=== PATIENT | male | born 1975 | race Caucasian/White ===

== ENCOUNTER 2017-01-04 14:37 | Observation (INO) | payer MEDICARE ==
[2017-01-04] MEDS ORDERED: Sodium Chloride 0.9% 1000 ML 1,000 ML IV STA (14:51)
--- NOTE | 2017-01-04 14:57 | ERPHSYRPT ---
- History of Present Illness Time Seen by Provider: 01/04/17 14:46 Source: patient, EMS Exam Limitations: no limitations Patient Subjective Stated Complaint: PT REPORTS TAKING YOHIMBO A DIET SUPPLEMENT AT [facility]-DID NOT WORK OUT-DID NOT INCREASE FLUID INTAKE-STATES HE FELT LIKE HIS HEART WAS RACING-LUMA LAW-DENIES N/V/ Triage Nursing Assessment: PT PINK WARM ET [id number] NONLABORED-RADIAL PULSE REGULAR ET STRONG Physician History: This is a 41-year-old white male with history of bipolar disorder who is on lithium. He arrives with complaint of his heart racing symptoms since 10:00 this morning. Patient states he took a 450 mg yohimbe tablet which is a dietary supplement he states he did not work out and he began to feel feel as if his heart was racing. He denies any chest pain shortness of breath he does state that he is nauseous he apparently did not increase his fluids. Past medical history includes depression (bipolar disorder. Past surgical history is negative. Social history patient denies tobacco alcohol or illicit drug use. Patient denies suicidal or homicidal ideation Timing/Duration: today (10:00 this morning) Severity: moderate Modifying Factors: Improves With: medication (took yohimbe 450 mg orally at 10: 00) Associated Symptoms: nausea, other (tacchycardia), No vomiting, No abdominal pain, No shortness of breath, No heartburn, No diaphoresis, No cough, No chills , No chest pain, No fever, No headaches, No loss of appetite, No malaise, No rash, No syncope, No seizure, No weakness Allergies/Adverse Reactions: No Known Drug Allergies Allergy (Unverified 01/04/17 14:39) Home Medications: Fluoxetine HCl [Prozac] 20 mg PO DAILY 01/04/17 [History] [place] Carbonate 300 mg [[place] Carbonate 300 MG] 1,200 mg PO DAILY 09/17 [History] Olanzapine [Zyprexa] 20 mg PO DAILY 01/04/17 [History] Hx Tetanus, Diphtheria Vaccination/Date Given: No Hx Influenza Vaccination/Date Given: No Hx Pneumococcal Vaccination/Date Given: No Immunizations Up to Date: Yes - Review of Systems Constitutional: No Fever, No Chills Eyes: No Symptoms Ears, Nose, & Throat: No Symptoms Respiratory: No Cough, No Dyspnea Cardiac: Palpitations, Other (tacchycardia) Abdominal/Gastrointestinal: Nausea, No Abdominal Pain, No Vomiting, No Diarrhea Genitourinary Symptoms: No Dysuria Musculoskeletal: No Back Pain, No Neck Pain Skin: No Rash Neurological: No Dizziness, No Focal Weakness, No Sensory Changes Psychological: No Symptoms, No Alcohol Abuse, No Drug Abuse, No Suicidal Ideations, No Homicidal Ideations Endocrine: No Symptoms All Other Systems: Reviewed and Negative - Past Medical History Pertinent Past Medical History: Yes Psycho-Social History: Depression, Other - Past Surgical History Past Surgical History: Yes Musculoskeletal: Orthopedic Surgery - Social History Smoking Status: Never smoker Exposure to second hand smoke: No Drug Use: none Patient Lives Alone: No - Nursing Vital Signs Nursing Vital Signs: Initial Vital Signs Temperature 97.1 F 01/04/17 14:39 Pulse Rate 95 H 01/04/17 14:39 Respiratory Rate 20 01/04/17 14:39 Blood Pressure 180/90 01/04/17 14:39 O2 Sat by Pulse Oximetry 96 01/04/17 14:39 Pain Scale Pain Intensity 0 - Physical Exam General Appearance: anxiety, other (well-developed white male somewhat pale in appearance slight tremor) Eye Exam: PERRL/EOMI, eyes nml inspection Ears, Nose, Throat Exam: normal ENT inspection, TMs normal, pharynx normal, moist mucous membranes Neck Exam: normal inspection, non-tender, supple, full range of motion Respiratory Exam: normal breath sounds, lungs clear, No respiratory distress Cardiovascular Exam: regular rate/rhythm, normal heart sounds, normal peripheral pulses Gastrointestinal/Abdomen Exam: soft, normal bowel sounds, No tenderness, No mass Back Exam: normal inspection, normal range of motion, No CVA tenderness, No vertebral tenderness Extremity Exam: normal inspection, normal range of motion, pelvis stable Neurologic Exam: alert, oriented x 3, cooperative, normal mood/affect, nml cerebellar function, nml station & gait, sensation nml, No motor deficits Skin Exam: normal color, warm, dry, No rash Lymphatic Exam: No adenopathy SpO2 Interpretation: normal (96%) SpO2: 96 Oxygen Delivery: Room Air - Course Nursing assessment & vital signs reviewed: Yes EKG Interpreted by Me: RATE (86 bpm), NORMAL AXIS, Other (EKG: Normal sinus rhythm 86 bpm normal axis no acute ST or T wave changes are noted (QTc is noted to be 521 ms)) Ordered Tests: Active Orders 24 hr Category Date Time Status Accucheck STAT Care 01/04/17 14:51 Active EKG-ER Only STAT Care 01/04/17 14:51 Active IV Insertion STAT Care 01/04/17 14:51 Active ACETAMINOPHEN Routine Lab 01/04/17 15:00 Completed CBC W DIFF Stat Lab 01/04/17 14:45 Completed CK-Creatinine Phosphokinase Stat Lab 01/04/17 15:33 Completed CMP Routine Lab 01/04/17 15:00 Completed ETHYL ALCOHOL Routine Lab 01/04/17 15:00 Completed LITHIUM Stat Lab 01/04/17 14:45 Completed SALICYLATE Routine Lab 01/04/17 15:00 Completed TROPONIN Q3H Lab 01/04/17 15:00 Completed TROPONIN Q3H Lab 01/04/17 18:00 Ordered TROPONIN Q3H Lab 01/04/17 21:00 Ordered TROPONIN Q3H Lab 01/05/17 00:00 Ordered TROPONIN Q3H Lab 01/05/17 03:00 Ordered Urine Triage Profile Stat Lab 01/04/17 14:51 Ordered Medication Summary Discontinued Medications Generic Name Dose Route Start Last Admin Trade Name Freq PRN Reason Stop Dose Admin Sodium Chloride 1,000 mls @ 999 mls/hr 01/04/17 14:51 01/04/17 15:16 Sodium Chloride 0.9% 1000 Ml IV 01/04/17 15:51 999 mls/hr .Q1H1M STA Administration Sodium Chloride Confirm 01/04/17 15:11 Sodium Chloride 0.9% 1000 Ml Administered 01/04/17 15:12 Dose 1,000 mls @ ud .ROUTE .K-MED ONE Lab/Rad Data: Laboratory Result Diagrams 01/04/17 14:45 01/04/17 15:00 Laboratory Results 01/04/17 01/04/17 01/04/17 Range/Units 15:33 15:00 14:45 WBC (4.0-10.5) K/mm3 RBC (4.1-5.6) M/mm3 Hgb (12.5-18.0) gm/dl Hct (42-50) % MCV (78-100) fl MCH (26-32) pg MCHC (32-36) g/dl RDW (11.5-14.0) % Plt Count (150-450) K/mm3 MPV (6-9.5) fl Gran % (36.0-66.0) % Lymphocytes % (24.0-44.0) % Monocytes % (0.0-12.0) % Eosinophils % (0.00-5.0) % Basophils % (0.0-0.4) % Basophils # (0-0.4) Sodium 134 L (136-145) mEq/L Potassium 3.6 (3.5-5.1) mEq/L Chloride 98 (98-107) mEq/L Carbon Dioxide 24.3 (21-32) mEq/L Anion Gap 15.1 H (5-15) MEQ/L BUN 16 (9-20) mg/dL Creatinine 1.06 (0.55-1.30) mg/dl Estimated GFR > 60 ML/MIN Glucose 120 H (70-110) MG/DL Calcium 9.7 (8.5-10.1) mg/dL Total Bilirubin 0.40 (0.2-1.0) mg/dL AST 39 H (15-37) U/L ALT 46 (12-78) U/L Alkaline Phosphatase 83 (46-116) U/L Creatine Kinase 464 H (39-308) U/L Troponin I < 0.017 (0.000-0.056) ng/ml Serum Total Protein 7.9 (6.4-8.2) gm/dL Albumin 4.7 (3.4-5.0) g/dL Salicylates < 2.8 L (2.8-20.0) mg/dl Acetaminophen < 2.0 L (10-30) ug/ml [place] 0.56 L (0.60-1.20) mmol/l Ethyl Alcohol < 0.010 (0.00-0.01) % 01/04/17 Range/Units 14:45 WBC 21.7 H (4.0-10.5) K/mm3 RBC 4.48 (4.1-5.6) M/mm3 Hgb 14.6 (12.5-18.0) gm/dl Hct 40.9 L (42-50) % MCV 91.3 (78-100) fl MCH 32.6 H (26-32) pg MCHC 35.7 (32-36) g/dl RDW 13.1 (11.5-14.0) % Plt Count 231 (150-450) K/mm3 MPV 10.3 H (6-9.5) fl Gran % 91.2 H (36.0-66.0) % Lymphocytes % 3.7 L (24.0-44.0) % Monocytes % 5.1 (0.0-12.0) % Eosinophils % 0.0 (0.00-5.0) % Basophils % 0.0 (0.0-0.4) % Basophils # 0.01 (0-0.4) Sodium (136-145) mEq/L Potassium (3.5-5.1) mEq/L Chloride (98-107) mEq/L Carbon Dioxide (21-32) mEq/L Anion Gap (5-15) MEQ/L BUN (9-20) mg/dL Creatinine (0.55-1.30) mg/dl Estimated GFR ML/MIN Glucose (70-110) MG/DL Calcium (8.5-10.1) mg/dL Total Bilirubin (0.2-1.0) mg/dL AST (15-37) U/L ALT (12-78) U/L Alkaline Phosphatase (46-116) U/L Creatine Kinase (39-308) U/L Troponin I (0.000-0.056) ng/ml Serum Total Protein (6.4-8.2) gm/dL Albumin (3.4-5.0) g/dL Salicylates (2.8-20.0) mg/dl Acetaminophen (10-30) ug/ml [place] (0.60-1.20) mmol/l Ethyl Alcohol (0.00-0.01) % - Progress Progress: improved Progress Note: 01/04/17 14:58 41-year-old white male who took a dietary supplement( [id number] mg) at 10:00 this morning he is complaining of the tachycardia since he has a mild tremor. He denies any intentional overdoses he is not short of breath she has no chest pain he does have some nausea. He does have a history of bipolar disorder and is on lithium. Will go ahead and order CBC CMP troponin EKG lithium level. Will give patient IV normal saline 1 L IV. Will have nurses contact poison control. 01/04/17 16:07 Case is discussed with poison control by the patient's nurse it is noted that the patient's QTc interval is greater than 500. Poison control recommends that the patient be monitored for at least 8 hours. Patient does have a white count of 21.7 hemoglobin 14.6 hematocrit 40.9 platelets 231 and CPK is elevated at 464 with a normal of 39-3 elevated lithium his low at 0.56 chemistry essentially normal acetaminophen level and salicylate level are within normal limits urine drug screen has been ordered and is pending. Patient is agreeable to being admitted to observation he is being given IV normal saline. Will discuss case with further physician convention services manager for placement for observation. 01/04/17 16:38 Patient's case is discussed with Dr. Still who is convention services manager for hospital service Will place patient on telemetry observation we will provide IV normal saline. Patient will need to be monitored for at least 8 hours - Departure Time of Disposition: 16:40 Departure Disposition: Observation Clinical Impression: Palpitations, increased QTc interval Medication side effect Qualifiers: Encounter type: initial encounter Qualified Code(s): T88.7XXA - Unspecified adverse effect of drug or medicament, initial encounter Condition: Fair Critical Care Time: No
[2017-01-04 15:08] LABS: Granulocytes % 91.2 % (36.0-66.0); Lymphocytes % 3.7 % (24.0-44.0); Mean Cell Volume 91.3 fl (78-100); Mean Corpuscular Hemoglobin 32.6 pg (26-32); Mean Platelet Volume 10.3 fl (6-9.5); Monocytes % 5.1 % (0.0-12.0); Platelet Count 231 K/mm3 (150-450); Red Blood Count 4.48 M/mm3 (4.1-5.6); Red Cell Distribution Width 13.1 % (11.5-14.0); White Blood Count 21.7 K/mm3 (4.0-10.5)
[2017-01-04] MEDS ORDERED: Sodium Chloride 0.9% 1000 ML 1,000 ML ONE (15:11)
[2017-01-04 15:52] LABS: ALBUMIN 4.7 g/dL (3.4-5.0); ALKALINE PHOSPHATASE 83 U/L (46-116); ANION GAP 15.1 MEQ/L (5-15); BLOOD UREA NITROGEN 16 mg/dL (9-20); CHLORIDE 98 mEq/L (98-107); Carbon Dioxide 24.3 mEq/L (21-32); ETHYL ALCOHOL < 0.010 % (0.00-0.01); Glucose 120 MG/DL (70-110); Potassium 3.6 mEq/L (3.5-5.1); SGOT/AST 39 U/L (15-37); SGPT/ALT 46 U/L (12-78); SODIUM 134 mEq/L (136-145); Total Protein 7.9 gm/dL (6.4-8.2)
[2017-01-04 15:57] LABS: TROPONIN < 0.017 ng/ml (0.000-0.056)
[2017-01-04 15:58] LABS: ACETAMINOPHEN < 2.0 ug/ml (10-30)
[2017-01-04] MEDS: Sodium Chloride 0.9% 1000 ML 1,000 ML IV SCH (17:35)
[2017-01-04] MEDS: Lithium Carbonate 300 MG PO SCH (22:19)
[2017-01-05] MEDS: Sodium Chloride 0.9% 1000 ML 1,000 ML IV SCH ×2 (00:27→06:55)
[2017-01-05 06:05] LABS: BASOPHIL % 0.1 % (0.0-0.4); Granulocytes % 86.2 % (36.0-66.0); Lymphocytes % 7.3 % (24.0-44.0); Mean Cell Volume 94.8 fl (78-100); Mean Corpuscular Hemoglobin 32.3 pg (26-32); Mean Platelet Volume 9.9 fl (6-9.5); Monocytes % 6.4 % (0.0-12.0); Platelet Count 199 K/mm3 (150-450); Red Blood Count 4.21 M/mm3 (4.1-5.6); Red Cell Distribution Width 13.5 % (11.5-14.0); White Blood Count 11.2 K/mm3 (4.0-10.5)
[2017-01-05 06:37] LABS: ALBUMIN 4.2 g/dL (3.4-5.0); ALKALINE PHOSPHATASE 77 U/L (46-116); ANION GAP 9.4 MEQ/L (5-15); BLOOD UREA NITROGEN 10 mg/dL (9-20); CHLORIDE 109 mEq/L (98-107); Glucose 119 MG/DL (70-110); Potassium 4.2 mEq/L (3.5-5.1); SGOT/AST 31 U/L (15-37); SGPT/ALT 40 U/L (12-78); SODIUM 143 mEq/L (136-145)
--- NOTE | 2017-01-05 09:13 | PCM.DCORD ---
- Discharge Discharge Date: 01/05/17 Disposition: Home, Self-Care Condition: Good Prescriptions: Continue Olanzapine [Zyprexa] 20 mg PO HS Fluoxetine HCl [Prozac] 20 mg PO DAILY Changed [place] Carbonate 300 mg [[place] Carbonate 300 MG] 600 mg PO BID #0 Follow up with: JUDE MERCADO [Primary Care Provider] - TAMRA MERIDA [NON-STAFF PHY W/O PRIVILEGES] - Call for Appointment (as scheduled)
[2017-01-05] MEDS: Lithium Carbonate 300 MG PO SCH (09:38)
--- NOTE | 2017-01-05 11:16 | PCM.HP ---
History of Present Illness - Chief Complaint Chief Complaint: Palpitations; Increased QTC interval Date: 01/05/17 History of Present Illness: is a 41 year old male. who has history of bipolar disease that is currently controlled and was thinking about losing some weight so went to [facility] and was recommended Yohimbe which he took yesterday for the first time the recommended dose and immediately began feeling terrible and felt panicked and it was not improving so presented to ED. He was evaluated with an elevated CK and was also found to have prolonged Qtc. Poison control recommended monitor for at least 8 hours and was thus placed in observation. He began feeling back to his normal about 5 hours after the dose of the supplement and has felt himself all night. His zyprexa was held last night with his prolonged Qtc. He has not had any chest pain or shortness of breath or myalgias throughout the observation. He is urinating well and tolerating po well. his Qtc improved to 414 this am. - Review of Systems Constitutional: No Fever, No Chills Eyes: No Symptoms Ears, Nose, & Throat: No Symptoms Respiratory: No Cough, No Short Of Breath Cardiac: No Chest Pain, No Edema, No Syncope Abdominal/Gastrointestinal: No Abdominal Pain, No Nausea, No Vomiting, No Diarrhea Genitourinary Symptoms: No Dysuria Musculoskeletal: No Back Pain, No Neck Pain Skin: No Rash Neurological: No Dizziness, No Focal Weakness, No Sensory Changes Psychological: No Symptoms Endocrine: No Symptoms Hematologic/Lymphatic: No Symptoms Immunological/Allergic: No Symptoms Medications & Allergies Home Medications: Home Medication List Fluoxetine HCl [Prozac] 20 mg PO DAILY 01/04/17 [History Confirmed 01/04/17] Olanzapine [Zyprexa] 20 mg PO HS 01/04/17 [History Confirmed 01/04/17] [place] Carbonate 300 mg [[place] Carbonate 300 MG] 600 mg PO BID #0 10/17 [Rx Confirmed 01/04/17] Allergies/Adverse Reactions: Allergies Allergy/AdvReac Type Severity Reaction Status Date / Time No Known Drug Allergies Allergy Unverified 01/04/17 14:39 - Past Medical History Past Medical History: Yes Neurological History: No Pertinent History ENT History: No Pertinent History Cardiac History: No Pertinent History Respiratory History: No Pertinent History Endocrine Medical History: No Pertinent History Musculoskelatal History: No Pertinent History GI Medical History: No Pertinent History History: No Pertinent History Pyscho-Social History: Bipolar, Depression Male Reproductive Disorders: No Pertinent History - Past Surgical History Past Surgical History: Yes Neuro Surgical History: No Pertinent History Cardiac History: No Pertinent History Respiratory Surgery: No Pertinent History GI Surgical History: No Pertinent History Genitourinary Surgical Hx: No Pertinent History Musculskeletal Surgical Hx: Orthopedic Surgery Male Surgical History: No Pertinent History - Social History Smoking Status: Never smoker Exposure to second hand smoke: Yes Alcohol: None Drug Use: none - Physical Exam Vital Signs: Vital Signs - 24 hr Temp Pulse Resp BP Pulse Ox 01/05/17 08:00 98.4 F 51 L 20 160/86 97 01/05/17 04:00 98.2 F 60 18 152/84 100 01/04/17 23:33 98.4 F 77 18 139/76 97 01/04/17 20:08 98.5 F 72 22 154/91 98 01/04/17 17:41 97.1 F 69 16 145/81 98 01/04/17 17:03 69 16 145/81 98 01/04/17 16:40 96 01/04/17 15:58 90 01/04/17 15:40 91 H 18 162/88 97 01/04/17 14:39 97.1 F 95 H 20 180/90 96 General Appearance: no apparent distress, alert Neurologic Exam: alert, oriented x 3, cooperative, normal mood/affect, nml cerebellar function, nml station & gait, sensation nml, No motor deficits Eye Exam: PERRL/EOMI, eyes nml inspection Ears, Nose, Throat Exam: normal ENT inspection, TMs normal, pharynx normal, moist mucous membranes Neck Exam: normal inspection, non-tender, supple, full range of motion Respiratory Exam: normal breath sounds, lungs clear, No respiratory distress Cardiovascular Exam: regular rate/rhythm, normal heart sounds, normal peripheral pulses Gastrointestinal/Abdomen Exam: soft, normal bowel sounds, No tenderness, No mass Back Exam: normal inspection, normal range of motion, No CVA tenderness, No vertebral tenderness Extremity Exam: normal inspection, normal range of motion, pelvis stable Skin Exam: normal color, warm, dry, No rash Lymphatic Exam: No adenopathy Results - Labs Lab/Micro Results: Lab Results-Last 24 Hours 01/05/17 01/05/1701/05/17 Range/Units 05:30 05:30 05:30 WBC 11.2 H (4.0-10.5) K/mm3 RBC 4.21 (4.1-5.6) M/mm3 Hgb 13.6 (12.5-18.0) gm/dl Hct 39.9 L (42-50) % MCV 94.8 (78-100) fl MCH 32.3 H (26-32) pg MCHC 34.1 (32-36) g/dl RDW 13.5 (11.5-14.0) % Plt Count 199 (150-450) K/mm3 MPV 9.9 H (6-9.5) fl Gran % 86.2 H (36.0-66.0) % Lymphocytes % 7.3 L (24.0-44.0) % Monocytes % 6.4 (0.0-12.0) % Eosinophils % 0.0 (0.00-5.0) % Basophils % 0.1 (0.0-0.4) % Basophils # 0.01 (0-0.4) Sodium 143 (136-145) mEq/L Potassium 4.2 (3.5-5.1) mEq/L Chloride 109 H (98-107) mEq/L Carbon Dioxide 29.0 (21-32) mEq/L Anion Gap 9.4 (5-15) MEQ/L BUN 10 (9-20) mg/dL Creatinine 0.91 (0.55-1.30) mg/dl Estimated GFR > 60 ML/MIN Glucose 119 H (70-110) MG/DL Calcium 9.2 (8.5-10.1) mg/dL Total Bilirubin 0.40 (0.2-1.0) mg/dL AST 31 (15-37) U/L ALT 40 (12-78) U/L Alkaline Phosphatase 77 (46-116) U/L Creatine Kinase 339 H (39-308) U/L Troponin I 0.022 (0.000-0.056) ng/ml Serum Total Protein 7.0 (6.4-8.2) gm/dL Albumin 4.2 (3.4-5.0) g/dL Assessment/Plan (1) Medication side effect Current Visit: Yes Status: Acute Qualifiers: Encounter type: initial encounter Qualified Code(s): T88.7XXA - Unspecified adverse effect of drug or medicament, initial encounter Assessment & Plan: To recommended dose of Yohimbe 450 mg prolonged Qtc resolved ck improving asymptomatic this am will discharge to home with routine follow up Code(s): T88.7XXA - UNSP ADVERSE EFFECT OF DRUG OR MEDICAMENT, INIT ENCNTR (2) Bipolar disorder Current Visit: Yes Status: Acute (3) Palpitations Current Visit: Yes Status: Acute Code(s): R00.2 - PALPITATIONS
[2017-01-05 11:20] VITALS: BP 144/76; PULSE 50; O2SAT 95
== END 2017-01-05 11:10 | disposition home or self-care (01) ==
LOC: ED 14:37 → MED SURG 17:15
PROVIDERS: ADMIT Family Medicine; ATTEND Family Medicine
DX: T50.995A Adverse effect of other drugs, medicaments and biological substances, initial encounter (principal); F31.9 Bipolar disorder, unspecified; R00.2 Palpitations
CPT/HCPCS: 93268 ×2; 99285; 36000; 82962; 96360; 96361; 93005 ×2; 36415 ×2; 80178; 82550 ×2; 80307 ×2; 85025 ×2; 80053 ×2; 84484 ×2; G0481 ×2; G0378; A9270-GY

== ENCOUNTER 2017-05-19 08:28 | Emergency (ER) | payer MEDICARE ==
--- NOTE | 2017-05-19 08:42 | ERPHSYRPT ---
- History of Present Illness Time Seen by Provider: 05/19/17 08:33 Source: patient Exam Limitations: no limitations Physician History: The patient is a 41-year-old male with a history of bipolar disorder and panic attacks complaining that he has run out of clonazepam this morning. He gets a 90 day supply of clonazepam through mail order supply house. He takes 2 weeks for the mail order supply to arrive at his house. And he forgot to order more clonazepam. Yesterday he had a panic attack and took more clonazepam that he wanted to. This morning he took his last 0.5 mg. He now feels jittery and anxious because normally he takes 1.0 mg in the morning followed by 0.5 mg at night. He denies any suicidal thoughts or ideation. He is becoming worried that he will not have any medicine to calm him down today. He had a psychiatrist in [place] but the last time he was there, his test was negative for clonazepam. His doctor claimed that he was not taking it so he will not prescribe any more clonazepam for the patient. The patient still has one refill of clonazepam and will requests a refill tomorrow. He will look for a local doctor tomorrow to help him through the next 2 weeks while he waits for the mail order clonazepam. His past medical history is significant for panic disorder, anxiety, and bipolar disease. Timing/Duration: today Severity of Symptoms-Max: mild Severity of Symptoms-Current: mild Context related to: other (prescription ran out) Associated Symptoms: anxiety Previous symptoms: same symptoms as today, recently treated Allergies/Adverse Reactions: No Known Drug Allergies Allergy (Unverified 01/04/17 14:39) Home Medications: Fluoxetine HCl [Prozac] 20 mg PO DAILY 01/04/17 [History] Olanzapine [Zyprexa] 20 mg PO HS 01/04/17 [History] Buspirone HCl 10 mg PO TID 05/19/17 [History] Clonazepam 0.5 mg [Klonopin 0.5 MG] 0.5 mg PO HS 05/19/17 [History] Clonazepam [Klonopin] 1 mg PO DAILY 05/19/17 [History] Hx Tetanus, Diphtheria Vaccination/Date Given: No Hx Influenza Vaccination/Date Given: No Hx Pneumococcal Vaccination/Date Given: No - Past Medical History Pertinent Past Medical History: Yes Neurological History: No Pertinent History ENT History: No Pertinent History Cardiac History: No Pertinent History Respiratory History: No Pertinent History Endocrine Medical History: No Pertinent History Musculoskeletal History: No Pertinent History GI Medical History: No Pertinent History History: No Pertinent History Psycho-Social History: Bipolar, Depression Male Reproductive Disorders: No Pertinent History - Past Surgical History Past Surgical History: Yes Neuro Surgical History: No Pertinent History Cardiac: No Pertinent History Respiratory: No Pertinent History Gastrointestinal: No Pertinent History Genitourinary: No Pertinent History Musculoskeletal: Orthopedic Surgery Male Surgical History: No Pertinent History - Social History Smoking Status: Never smoker Exposure to second hand smoke: Yes Drug Use: none Patient Lives Alone: No - Review of Systems Constitutional: No Fever, No Chills Eyes: No Symptoms Ears, Nose, & Throat: No Symptoms Respiratory: No Cough, No Dyspnea Cardiac: No Chest Pain, No Edema, No Syncope Abdominal/Gastrointestinal: No Abdominal Pain, No Nausea, No Vomiting, No Diarrhea Genitourinary Symptoms: No Dysuria Musculoskeletal: No Back Pain, No Neck Pain Skin: No Rash Neurological: No Dizziness, No Focal Weakness, No Sensory Changes Psychological: Anxiety Endocrine: No Symptoms Hematologic/Lymphatic: No Symptoms Immunological/Allergic: No Symptoms All Other Systems: Reviewed and Negative - Physical Exam General Appearance: mild distress, anxiety Eyes, Ears, Nose, Throat Exam: normal ENT inspection, moist mucous membranes Neck Exam: normal inspection, non-tender, supple Respiratory Exam: normal breath sounds, lungs clear, No respiratory distress Cardiovascular Exam: regular rate/rhythm, No edema Gastrointestinal/Abdominal Exam: soft, No tenderness, No distention Extremities Exam: normal inspection, normal range of motion, No evidence of injury, No edema Current Suicidality: denies suicide plan Neurological Exam: anxious Appearance: appropriate appearance, appropriate insight Behavior/Eye Contact/Speech: alert & cooperative Thoughts/Hallucinations: normal thought pattern Skin Exam: normal color, warm, dry, No rash SpO2 Interpretation: normal - Departure Time of Disposition: 08:50 Departure Disposition: Home Clinical Impression: Anxiety Condition: Stable Critical Care Time: No Referrals: JUDE MERCADO [Primary Care Provider] - Additional Instructions: You have anxiety. You have run out of your clonazepam. I have given you a temporary prescription for clonazepam. Take 2 tablets of 0.5 mg clonazepam in the morning and one tablet of 0.5 mg clonazepam in the evening. Follow up tomorrow to establish care with a new local physician. Place an order for your refill of the mail-order clonazepam that you obtain on a scheduled basis. Prescriptions: Clonazepam 0.5 mg [Klonopin 0.5 MG] 0.5 mg PO TID #10 tab
[2017-05-19 08:46] VITALS: BP 149/85; PULSE 76; O2SAT 98
== END 2017-05-19 09:05 | disposition home or self-care (01) ==
LOC: ED 08:28
DX: F41.9 Anxiety disorder, unspecified (principal); Z79.899 Other long term (current) drug therapy
CPT/HCPCS: 99283

== ENCOUNTER 2020-01-05 09:27 | Emergency (ER) | payer MEDICARE ==
[2020-01-05 09:49] VITALS: BP 164/92; PULSE 61; O2SAT 100
--- NOTE | 2020-01-05 10:09 | ERPHSYRPT ---
- History of Present Illness Source: patient Exam Limitations: no limitations Patient Subjective Stated Complaint: Behavioral problems. Triage Nursing Assessment: Patient ambulated back to ED and transferred self to bed. Patient A+O X3. Patient's skin pink, warm and dry. Patient states his bipolar depression and OCD are out of control and he is unable to care for himself. Patient states his is physically unable to shower, shave, etc. Patient denies thoughts of suicide or homicide. Patient was instructed by Dr. Gan his psychiatrist to to come to ED if he was unable to leave his home. Physician History: 44 yo wm w h/o depression states that he is having problems w his depression and wants to see his therapist in [place]. Pt denies being suicidal/homicidal. He last saw his therapist 5 wks ago. Timing/Duration: gradual onset Severity of Symptoms-Max: mild Severity of Symptoms-Current: mild Context related to: other (Long h/o depression) Associated Symptoms: anxiety, depressed, No angry, No agitated, No confused, No frustrated, No hostile, No hallucinating, No impaired concentration, No ingestion, No injury, No insomnia, No paranoid, No suicidal ideation Previous symptoms: same symptoms as today Allergies/Adverse Reactions: No Known Drug Allergies Allergy (Verified 01/05/20 09:40) Home Medications: OLANZapine [Zyprexa] 20 mg PO HS 01/04/17 [History] Dextroamphetamine/Amphetamine [Dextroamp-Amphetamin 10 mg Tab] 10 mg PO BID 01/05/20 [History] [place] Carbonate 300 mg [[place] Carbonate 300 MG] 300 mg PO BID 01/05/20 [History] Hx Tetanus, Diphtheria Vaccination/Date Given: No Hx Influenza Vaccination/Date Given: No Hx Pneumococcal Vaccination/Date Given: No Immunizations Up to Date: Yes Travel Risk - International Travel Have you traveled outside of the country in past 3 weeks: No - Coronavirus Screening Are you exhibiting any of the following symptoms?: No Close contact with a COVID-19 positive Pt in past 14-21 Days: No - Past Medical History Pertinent Past Medical History: Yes Neurological History: No Pertinent History ENT History: No Pertinent History Cardiac History: No Pertinent History Respiratory History: No Pertinent History Endocrine Medical History: No Pertinent History Musculoskeletal History: No Pertinent History GI Medical History: No Pertinent History History: No Pertinent History Psycho-Social History: Bipolar, Depression, Other Male Reproductive Disorders: No Pertinent History Other Medical History: OCD - Past Surgical History Past Surgical History: Yes Neuro Surgical History: No Pertinent History Cardiac: No Pertinent History Respiratory: No Pertinent History Gastrointestinal: No Pertinent History Genitourinary: No Pertinent History Musculoskeletal: Orthopedic Surgery Male Surgical History: No Pertinent History Other Surgical History: Orthopedic surgery to [place] feet. - Social History Smoking Status: Never smoker Exposure to second hand smoke: Yes Drug Use: none Patient Lives Alone: No Significant Family History: no pertinent family hx - Review of Systems Constitutional: No Symptoms Eyes: No Symptoms Ears, Nose, & Throat: No Symptoms Respiratory: No Symptoms Cardiac: No Symptoms Abdominal/Gastrointestinal: No Symptoms Genitourinary Symptoms: No Symptoms Musculoskeletal: No Symptoms Skin: No Symptoms Neurological: No Symptoms Psychological: No Suicidal Ideations Endocrine: No Symptoms Hematologic/Lymphatic: No Symptoms Immunological/Allergic: No Symptoms - Nursing Vital Signs Nursing Vital Signs: Initial Vital Signs Temperature 98.4 F 01/05/20 09:41 Pulse Rate 61 01/05/20 09:41 Respiratory Rate 18 01/05/20 09:41 Blood Pressure 164/92 01/05/20 09:41 O2 Sat by Pulse Oximetry 100 01/05/20 09:41 Pain Scale Pain Intensity 0 - Physical Exam General Appearance: no apparent distress Eyes, Ears, Nose, Throat Exam: normal ENT inspection, TMs normal, pharynx normal, moist mucous membranes Neck Exam: normal inspection, non-tender, supple, full range of motion, No Brudzinski, No Kernig's, No meningismus Respiratory Exam: normal breath sounds, lungs clear, airway intact, No respiratory distress Cardiovascular Exam: regular rate/rhythm, normal heart sounds, normal peripheral pulses, No murmur Gastrointestinal/Abdominal Exam: soft, normal bowel sounds Extremities Exam: normal inspection Current Suicidality: denies suicide plan Neurological Exam: alert, 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 (Slightly dysthymic), oriented x 3 Appearance: appropriate appearance, appropriate insight, neat, no memory impairment, denies illness, No disheveled, No impaired insight Behavior/Eye Contact/Speech: alert & cooperative, good eye contact, normal speech Thoughts/Hallucinations: normal thought pattern, no apparent hallucination, No auditory hallucinations, No delusions, No flight of ideas Skin Exam: normal color, warm, dry SpO2 Interpretation: normal SpO2: 100 O2 Delivery: Room Air - Course Nursing assessment & vital signs reviewed: Yes - Progress Progress: unchanged Progress Note: 01/05/20 10:05 Pt not suicidal or homicidal and appears stable at this time. Will discharge pt to f/u with his therapist in . Counseled pt/family regarding: need for follow-up - Departure Departure Disposition: Home Clinical Impression: Depression Condition: Stable Critical Care Time: No Referrals: JUDE MERCADO [Primary Care Provider] - Instructions: Depression, Adult (DC) Additional Instructions: Follow up with your therapist DOMI. Continue current meds.
== END 2020-01-05 10:22 | disposition home or self-care (01) ==
LOC: ED 09:27
DX: F32.9 Major depressive disorder, single episode, unspecified (principal)
CPT/HCPCS: 99283